=== PATIENT | male | born 1960 | race American Indian/Alaskan Native ===

== ENCOUNTER 2016-10-04 07:24 | Emergency (ER) | payer MEDICARE ==
[2016-10-04] MEDS ORDERED: NACL 0.9% 1000 ML 1,000 ML ONE (07:30)
[2016-10-04] MEDS ORDERED: NACL 0.9% 1000 ML 1,000 ML IV ONE ×3 (07:38→12:43)
--- NOTE | 2016-10-04 07:58 | Emergency Department Report ---
HPI - General Chief Complaint: Dyspnea/Respdistress Time Seen by Provider: 10/04/16 07:48 - HPI HPI: The patient is a 56-year-old male with a history of metastatic pancreatic cancer , who presents for evaluation of dyspnea and altered mental status. The patient arrives with his and mother, whom reports that approximately 1 hour prior to arrival, the patient was found in his bed with decreased respirations and decreased responsiveness, severe, constant. They should've the patient is on home hospice and is a full code. They deny that the patient has exhibited fever, facial drooping or lateralizing weakness, cough, hemoptysis , vomiting, diarrhea, rash. ED Past Medical Hx - Past Medical History Hx Hypertension: Yes Hx Liver Disease: Yes Additional medical history: chronic back pain - Surgical History Additional Surgical History: biopsy of abd done at [facility] in July of 2015. Port in right chest - Social History Smoking Status: Never Smoker - Medications Home Medications: Home Medications Medication Instructions Recorded Confirmed Last Taken Type Atenolol 25 mg PO DAILY 08/22/15 08/08/16 09/20/15 History Pantoprazole [Protonix TAB] 40 mg PO QDAY 08/22/15 08/08/16 09/20/15 History Promethazine [Phenergan TAB] 25 mg PO Q4H PRN 08/22/15 08/08/16 09/20/15 History fentaNYL [Fentanyl] 75 mcg TD 2XWHS #30 patch.td72 08/23/15 08/08/16 08/08/16 Rx Morphine Sulfate/0.9% NaCl/Pf 5 mg PO Q4HR 08/08/16 08/08/16 Unknown History [Morphine 50 mg/50 ml-0.9% NaCl] Ondansetron [Zofran ODT TAB] 8 mg PO Q12HR 08/08/16 08/08/16 Unknown History ED Review of Systems ROS: Stated complaint: LIAM Other details as noted in HPI Constitutional: denies: fever Eyes: other (jaundice) ENT: denies: epistaxis Respiratory: shortness of breath. denies: cough Cardiovascular: denies: syncope Endocrine: denies: flushing Gastrointestinal: denies: vomiting Musculoskeletal: denies: joint swelling Skin: denies: rash Neurological: denies: headache Hematological/Lymphatic: denies: easy bleeding Physical Exam - Physical Exam Vital Signs: Vital Signs 10/04/16 07:29 Pulse Rate 140 H Blood Pressure 76/57 Physical Exam: General: Cachectic appearing, poorly nourished, well-developed, no acute distress Head: Normocephalic, atraumatic Eyes: Scleral icterus present ENT: Mucous membranes are pale and dry Neck: No neck stiffness, no cervical adenopathy Respiratory: Diminished breath sounds and rales present to the left mid and lower lung almodovar Cardio: S1 and S2 present, no murmurs, rubs, gallops, capillary refill is delayed Abdomen: Normoactive bowel sounds, soft abdomen, no rigidity, no guarding or rebound tenderness Musc: No pitting edema Skin: jaundice Neuro: patient drowsy, responsive to stimuli, gag reflex intact, protecting airway, no lateralizing facial drooping, patient moves bilateral extremities spontaneously, nonverbal, unable to follow commands Psych: Normal affect ED Course Vital Signs 10/04/16 07:29 Pulse Rate 140 H Blood Pressure 76/57 ED Medical Decision Making - Lab Data Result diagrams: 10/04/16 07:40 10/04/16 07:40 - Medical Decision Making The patient was seen and examined by myself. The patient is placed on a cardiac rehabilitation program director and continuous pulse ox. On initial evaluation, the patient was found to have hypotension, BP 76/56, and low respiratory rate, with intermittent 3-5s episodes of apnea. Evaluation orders were placed. The patient is placed on BiPAP and the patient is given 2 L normal saline fluid bolus. The patient's oxygen saturation improves to 90s. Multiple bedside assessments were performed to evaluate patient responsiveness to fluids resuscitation. Lab results revealed elevated lactic acid 3.2, elevated total bilirubin level of 5.7, elevated ALT 118, AST 60, alkaline phosphatase 283, glucose 49. The patient is given an amp of D50 for hypoglycemia. X-ray of the chest reveals likely hyperventilation of the left lung. As the patient is afebrile with normal WBC, pneumonia is less likely. The patient is found to have improvement in BP, SBP now 95. The on-call hospitalist service was contacted. They agreed to admit the patient for further treatment and close monitoring. The ED admit order was placed. The patient was admitted in critical condition. Critical Care Time: Yes Critical care time in (mins) excluding proc time.: 35 Critical care attestation.: Due to the critical nature of this patients presentation, which necessitated multiple bedside assessments, manipulation and supportive measures to prevent further life threatening deterioration, I would like to bill for a total of 35 minutes of critical care time. This was exclusive of any separately billable procedures. Critical Care Time: 35 ED Disposition Clinical Impression: Apnea, Jaundice, Hypovolemic shock, Lactic acidosis Acute respiratory failure Qualifiers: Respiratory failure complication: unspecified whether with hypoxia or hypercapnia Qualified Code(s): J96.00 - Acute respiratory failure, unspecified whether with hypoxia or hypercapnia Disposition: OP ADMITTED IP TO THIS HOSP Is pt being admited?: Yes Does the pt Need Aspirin: Yes Condition: Critical Referrals: JORID SANDRA MD [Primary Care Provider] - 3-5 Days Time of Disposition: 07:58
[2016-10-04] MEDS ORDERED: ASPIRIN PR ONE (07:59)
[2016-10-04] MEDS ORDERED: ZOFRAN IV ONE (08:01)
[2016-10-04 08:07] LABS: ISTAT Base Excess 9; ISTAT HCO3 31.6; ISTAT PCO2 35.7 (35-45); ISTAT PH 7.555 (7.35-7.45); ISTAT PO2 332 (80-105); ISTAT SO2 100; ISTAT TCO2 33
[2016-10-04 08:08] LABS: Hematocrit 38.3 % (35.5-45.6); Hemoglobin 12.5 gm/dl (11.8-15.2); Mean Corpuscular HGB Conc 33 % (32-34); Mean Corpuscular Hemoglobin 33 pg (28-32); Mean Corpuscular Volume 99 fl (84-94); Platelet Count 102 K/mm3 (140-440); Red Blood Count 3.85 M/mm3 (3.65-5.03); White Blood Count 9.5 K/mm3 (4.5-11.0)
[2016-10-04 08:19] LABS: INR 1.98 (0.87-1.13)
[2016-10-04 08:27] LABS: Alanine Aminotransferase 60 units/L (7-56); Albumin 1.4 g/dL (3.9-5); Albumin/Globulin Ratio 0.4 %; Alkaline Phosphatase 283 units/L (35-129); Anion Gap 16 mmol/L; Bilirubin,Total 5.7 mg/dL (0.1-1.2); Blood Urea Nitrogen 33 mg/dL (9-20); Calcium 7.6 mg/dL (8.4-10.2); Carbon Dioxide 29 mmol/L (22-30); Chloride 106.3 mmol/L (98-107); Glucose 67 mg/dL (75-100); Potassium 3.2 mmol/L (3.6-5.0); Sodium 148 mmol/L (137-145); Total Protein 4.6 g/dL (6.3-8.2)
--- NOTE | 2016-10-04 08:32 | XRay Report ---
AP CHEST History: Sepsis. Findings: Compared to 08/08/16. There is very poor inspiration on this exam. Linear scarring or atelectasis is noted in the right perihilar region. Otherwise, the right lung is clear. Hazy opacity has developed throughout the left lung. It is unclear this represents hypoventilatory changes or subtle infiltrate. I favor hypoventilatory changes. There is no dense consolidation, pleural effusion or pneumothorax. Heart size remains within normal limits. The right [id number] remains in good position. Impression: Severely limited exam with poor inspiration. Hypoventilatory changes are suspected bilaterally. Please see above. If pneumonia is highly suspected, consider repeat examination in full inspiration or CT.
--- NOTE | 2016-10-04 08:59 | Admit Criteria Form ---
Admission Criteria Documentation: RESPIRATORY FAILURE GRG Clinical Indications for Admission to Inpatient Care (Place 'X' for any and all applicable criteria): Hospital admission is needed for appropriate care of the patient because of acute respiratory failure or insufficiency as indicated by ANY ONE of the following(1)(2)(3)(4)(5)(6)(7)(8): [ X]I. Mechanical ventilation needed (acute invasive or noninvasive) [ ]II. Severe ventilation deficit as indicated by ANY ONE of the following (9) [ ]a) Respiratory acidosis (pH less than 7.32 and partial pressure of carbon dioxide greater than 40 mm Hg (5.3 kPa)) [ ]b) Partial pressure of carbon dioxide greater than 44 mm Hg (5.9 kPa ) (new) [ ]c) Airflow measurements less than 25% of predicted (eg, peak expiratory flow rate less than 100 L/minute) [ ]d) Forced vital capacity less than 15 mL/kg of ideal body weight, or 50% decrease in vital capacity from baseline [ ]III. Noncardiac pulmonary edema not resolving with rapid emergency treatment (8) [ ]IV. Severe respiratory distress as indicated by ANY ONE of the following: [ ]a) Severe tachypnea (respiratory rate greater than 30, greater than 45 for 6-month-old, greater than 60 for ) [ ]b) Severe hypoxemia (partial pressure of oxygen less than 50 mm Hg ( 6.7 kPa) on greater than 50% oxygen or partial pressure of oxygen to FIO2 ratio less than 200) [ ]c) Mental status deterioration from respiratory disease [ ]V. Airway obstruction or inadequate protection [A](10)(11) The original [employer] content created by [employer] has been revised. The portions of the content which have been revised are identified through the use of italic text or in bold, and [email or web address] has neither reviewed nor approved the modified material. All other unmodified content is copyright [employer]. Please see references footnoted in the original [employer] edition 2016 Admission Criteria Met: Yes
--- NOTE | 2016-10-04 09:07 | History and Physical Report ---
History of Present Illness Chief complaint: I feel sick, I cant breathe History of present illness: 56 YO Male with Metastatic Pancreatic Cancer, Ascites, HTN, Severe Malnutrition , Chronic Liver Disease presents to ED for evaluation. Pt is unable to provide history. The patient arrives with his , son and mother. Pt family states that approximately 1 hour prior to arrival, the patient was found in his bed confused and breathing slowly. Pt transported to ED. Pt found to be in hypotensive and encephalopathic with systolic BP in the 70's, and in respiratory distress. Pt seen and evaluated in ED and subsequently treated with NIPPV. Pt initially admitted to ICU, Pt family counseled regarding poor prognosis. Pt family elects DNR and requests inpatient hospice care. Pt family counseled regarding hospice options. Hospice team consulted in ED as per family request. Past History Past Medical History: cancer, hepatitis, hypertension Past Surgical History: Other (Port placement) Social history: , lives with family. denies: smoking, alcohol abuse, prescription drug abuse Family history: hypertension Medications and Allergies Allergies Allergy/AdvReac Type Severity Reaction Status Date / Time No Known Allergies Allergy Verified 09/15/15 11:54 Home Medications Medication Instructions Recorded Confirmed Last Taken Type Atenolol 25 mg PO DAILY 08/22/15 08/08/16 09/20/15 History Pantoprazole [Protonix TAB] 40 mg PO QDAY 08/22/15 08/08/16 09/20/15 History Promethazine [Phenergan TAB] 25 mg PO Q4H PRN 08/22/15 08/08/16 09/20/15 History fentaNYL [Fentanyl] 75 mcg TD 2XWHS #30 patch.td72 08/23/15 08/08/16 08/08/16 Rx Morphine Sulfate/0.9% NaCl/Pf 5 mg PO Q4HR 08/08/16 08/08/16 Unknown History [Morphine 50 mg/50 ml-0.9% NaCl] Ondansetron [Zofran ODT TAB] 8 mg PO Q12HR 08/08/16 08/08/16 Unknown History Review of Systems All systems: negative Constitutional: weakness, malaise, chronic pain Respiratory: shortness of breath Exam - Constitutional Vitals: Temp Pulse Resp BP Pulse Ox 97.9 F 130 H 18 100/61 100 10/04/16 08:49 10/04/16 07:55 01/10/17 07:55 10/04/16 07:55 10/04/16 07:55 General appearance: Present: severe distress - EENT Eyes: Present: PERRL ENT: hearing intact - Neck Neck: Present: supple - Respiratory Respiratory effort: labored Respiratory: bilateral: diminished - Cardiovascular Rhythm: other (tachycardia) Heart Sounds: Present: S1 & S2 - Extremities Extremities: no ischemia Extremity abnormal: edema - Abdominal General gastrointestinal: Present: soft, distended, hypoactive bowel sounds, hepatomegaly Male genitourinary: Present: normal - Integumentary Integumentary: Present: clear, dry, decreased turgor - Musculoskeletal Musculoskeletal: generalized weakness - Psychiatric Psychiatric: no intact judgment & insight, no memory intact - Neurologic Neurologic: CNII-XII intact, no gait normal Results - Labs CBC & Chem 7: 10/04/16 07:40 10/04/16 07:40 Labs: Abnormal lab results 10/04/16 10/04/16 10/04/16 Range/Units 07:40 07:40 07:40 MCV 99 H (84-94) fl MCH 33 H (28-32) pg RDW 18.0 H (13.2-15.2) % Plt Count 102 L (140-440) K/mm3 PT 22.5 H (12.2-14.9) Sec. INR 1.98 H (0.87-1.13) POC ABG pH (7.35-7.45) POC ABG pO2 (80-105) VBG pH (7.320-7.420) Sodium 148 H (137-145) mmol/L Potassium 3.2 L (3.6-5.0) mmol/L BUN 33 H (9-20) mg/dL Creatinine 0.3 L (0.8-1.5) mg/dL Glucose 67 L (75-100) mg/dL Lactic Acid (0.7-2.0) mmol/L Calcium 7.6 L (8.4-10.2) mg/dL Total Bilirubin 5.7 H (0.1-1.2) mg/dL AST 118 H (5-40) units/L ALT 60 H (7-56) units/L Alkaline Phosphatase 283 H (35-129) units/L Total Protein 4.6 L (6.3-8.2) g/dL Albumin 1.4 L (3.9-5) g/dL Lipase (13-60) units/L 10/04/16 10/04/16 10/04/16 Range/Units 07:40 07:40 07:48 MCV (84-94) fl MCH (28-32) pg RDW (13.2-15.2) % Plt Count (140-440) K/mm3 PT (12.2-14.9) Sec. INR (0.87-1.13) POC ABG pH 7.555 H (7.35-7.45) POC ABG pO2 332 H (80-105) VBG pH 7.514 H (7.320-7.420) Sodium (137-145) mmol/L Potassium (3.6-5.0) mmol/L BUN (9-20) mg/dL Creatinine (0.8-1.5) mg/dL Glucose (75-100) mg/dL Lactic Acid 3.2 H* (0.7-2.0) mmol/L Calcium (8.4-10.2) mg/dL Total Bilirubin (0.1-1.2) mg/dL AST (5-40) units/L ALT (7-56) units/L Alkaline Phosphatase (35-129) units/L Total Protein (6.3-8.2) g/dL Albumin (3.9-5) g/dL Lipase (13-60) units/L 10/04/16 Range/Units 07:49 MCV (84-94) fl MCH (28-32) pg RDW (13.2-15.2) % Plt Count (140-440) K/mm3 PT (12.2-14.9) Sec. INR (0.87-1.13) POC ABG pH (7.35-7.45) POC ABG pO2 (80-105) VBG pH (7.320-7.420) Sodium (137-145) mmol/L Potassium (3.6-5.0) mmol/L BUN (9-20) mg/dL Creatinine (0.8-1.5) mg/dL Glucose (75-100) mg/dL Lactic Acid (0.7-2.0) mmol/L Calcium (8.4-10.2) mg/dL Total Bilirubin (0.1-1.2) mg/dL AST (5-40) units/L ALT (7-56) units/L Alkaline Phosphatase (35-129) units/L Total Protein (6.3-8.2) g/dL Albumin (3.9-5) g/dL Lipase 3 L (13-60) units/L Assessment and Plan - Patient Problems (1) Pancreatic cancer metastasized to liver Current Visit: Yes Status: Acute Plan to address problem: Poor prognosis, Pt terminally ill. Hospice team consulted in ED. Pending transport to inpatient hospice. The high probability of a clinically significant, sudden or life threatening deterioration of the [cardiac, pulmonary, endocrine, renal] system(s) required my full and direct attention, intervention and personal management. The aggregate critical care time was [69] minutes. This time is in addition to time spent performing reported procedures but includes the following: [x] Data Review and interpretation [x] Patient assessment and monitoring of vital signs [x] Documentation [x] Medication orders and management (2) Hypovolemic shock Current Visit: Yes Status: Acute Plan to address problem: IVF, supportive care, (3) Ascites Current Visit: No Status: Acute Qualifiers: Ascites type: malignant Qualified Code(s): R18.0 - Malignant ascites Plan to address problem: Secondary to metastatic pancreatic cancer, supportive care, pain control (4) Pain Current Visit: Yes Status: Acute (5) Acute respiratory failure Current Visit: Yes Status: Acute Plan to address problem: NIPPV, supportive care.
[2016-10-04] MEDS ORDERED: D50W (25GM) IV ONE ×3 (09:13→10:00)
[2016-10-04 09:29] LABS: Blastocytes % (Manual) 0 %
[2016-10-04 09:30] LABS: Anisocytosis 1+; Basophils % (Manual) 0 % (0.0-1.8); Eosinophils % (Manual) 0 % (0.0-4.3); Hypochromasia 1+; Poikilocytosis 1+; Total Cells Counted Percent 0
[2016-10-04 09:31] LABS: Diff Status Complete; Platelet Estimate Appears Decreased; Schistocytes Rare; Target Cells Few
[2016-10-04 09:54] VITALS: BP 96/65
--- NOTE | 2016-10-04 12:32 | Discharge Summary ---
Providers - Providers Primary care physician: JORDI SANDRA Hospitalization Condition: Critical Hospital course: 56 YO Male admitted for Acute Respiratory Failure, Hypovolemic Shock. Pt seen and evaluated in ED and treated with NIPPV. Pt initially admitted to ICU. Pt care plan discussed with family. Pt prognosis discussed with family. Pt deborahliy elects to make patient AND, and discharge to inpatient hospice. Pt counseled regarding hospice company care options. Pt family requests inpatient hospice care and decide to discharge patient to [facility] inpatient hospice unit. Pt medically optimized and discharged to hospice under care of medical coding instructor. 35 minutes dedicated to patient discharge and family education. Disposition: [facility] HOSPICE (MEDICAL FACILITY) - Discharge Diagnoses (1) Pancreatic cancer metastasized to liver Status: Acute (2) Hypovolemic shock Status: Acute (3) Ascites Status: Acute Qualifiers: Ascites type: malignant Qualified Code(s): R18.0 - Malignant ascites (4) Pain Status: Acute (5) Acute respiratory failure Status: Acute Qualifiers: Respiratory failure complication: unspecified whether with hypoxia or hypercapnia Qualified Code(s): J96.00 - Acute respiratory failure, unspecified whether with hypoxia or hypercapnia Core Measure Documentation - Palliative Care Palliative Care/ Comfort Measures: Hospice Care Exam - Constitutional Vitals: Temp Pulse Resp BP Pulse Ox 97.9 F 124 H 19 96/65 100 10/04/16 08:49 10/04/16 08:18 10/04/16 08:18 10/04/16 08:18 10/04/16 07:55 General appearance: Present: mild distress - EENT Eyes: Present: PERRL ENT: hearing intact - Neck Neck: Present: supple - Respiratory Respiratory effort: labored Respiratory: bilateral: diminished - Cardiovascular Rhythm: regular - Extremities Extremities: no ischemia Extremity abnormal: edema - Abdominal General gastrointestinal: Present: soft, distended, hypoactive bowel sounds Male genitourinary: Present: normal - Integumentary Integumentary: Present: clear, dry, decreased turgor - Musculoskeletal Musculoskeletal: generalized weakness - Psychiatric Psychiatric: no intact judgment & insight, no memory intact - Neurologic Neurologic: CNII-XII intact Plan Activity: advance as tolerated Follow up with: JORDI SANDRA MD [Primary Care Provider] - 3-5 Days
[2016-10-04] MEDS ORDERED: MORPHINE IV PRN (12:55)
[2016-10-04] MEDS ORDERED: MORPHINE ONE (12:56)
== END 2016-10-04 14:19 | disposition hospice, inpatient (51) ==
LOC: ED 07:24
DX: E87.2 Acidosis (principal); R06.81 Apnea, not elsewhere classified; R57.1 Hypovolemic shock; J96.00 Acute respiratory failure, unspecified whether with hypoxia or hypercapnia; I10 Essential (primary) hypertension; G89.29 Other chronic pain
CPT/HCPCS: 36415; 51702; 71010; 80053; 82140; 82803; 82805; 82962; 83690; 83735; 83880; 84439; 84443; 84484; 85007; 85025; 85610; 87040; 93005; 93010; 96361; 96374; 96375; 99291; J2270; J2405; J7030; 87076; 87186